=== PATIENT | male | born 1975 | race Caucasian/White ===

== ENCOUNTER 2018-12-30 10:40 | Emergency (ER) | payer MEDICAID, OTHER ==
[~2018-12-30] VITALS: Ht 167.6 cm; Wt 70.0 kg
[2018-12-30] MEDS ORDERED: ONDANSETRON HCL 4MG/2ML INJ IV STA (11:22)
[2018-12-30] MEDS ORDERED: SODIUM CHLORIDE 0.9% 1,000 ML IV ONE (11:22)
[2018-12-30] MEDS ORDERED: MORPHINE SULFATE 4 MG/ML CPJ (NOT FOR IM USE) IV STA (11:22)
[2018-12-30] MEDS ORDERED: FOLIC ACID 1 MG, THIAMINE HCL 100 MG, MVI, ADULT NO.1 10 ML in DEXTROSE 5% WATER 1,000 ML IV ONE ×4 (11:30)
[2018-12-30] MEDS ORDERED: LORAZEPAM 2MG/ML CPJ IV ONE (11:30)
[2018-12-30 12:07] LABS: BASOPHILS % 0.2 % (0.0-2.0); HEMATOCRIT. 36.2 % (42.0-52.0); HEMOGLOBIN. 12.3 g/dL (14.0-18.0); LYMPHOCYTES % 2.5 % (20.0-50.0); MEAN CORPUSCULAR HEMOGLOBIN 29.1 pg (28.0-32.0); MEAN CORPUSCULAR VOLUME 85.8 fL (80.0-94.0); MEAN PLATELET VOLUME 8.4 fl (7.4-10.4); NEUTROPHILS % 90.3 % (40.0-76.0); PLATELET 213 x1000/uL (130-400); RED BLOOD CELL COUNT 4.22 mill/uL (4.7-6.1); RED CELL DISTRIBUTION WIDTH 16.5 % (11.6-14.6)
[2018-12-30 12:12] LABS: CHLORIDE 96 mEq/L (98-107)
[2018-12-30 12:17] LABS: INR 0.9; PARTIAL THROMBOPLASTIN TIME 24.3 sec (23.4-31.0); PROTHROMBIN TIME 9.5 sec (9.6-11.0)
[2018-12-30 12:20] LABS: ETHANOL BLOOD < 10 mg/dL
[2018-12-30 13:39] LABS: CLARITY URINE CLEAR (CLEAR); COLOR URINE DARK YELLOW (YELLOW); KETONES URINE 3+ (NEGATIVE); LEUKOCYTE ESTERASE URINE NEGATIVE (NEGATIVE); NITRITE URINE NEGATIVE (NEGATIVE); OCCULT BLOOD URINE NEGATIVE (NEGATIVE); PH URINE 5.5 (4.5-8.0); PROTEIN URINE 1+ (NEGATIVE); SPECIFIC GRAVITY URINE 1.026 (1.005-1.030)
[2018-12-30 14:02] LABS: *AMPHETAMINES SCREEN URINE NEGATIVE (NEGATIVE); *BARBITURATES SCREEN URINE NEGATIVE (NEGATIVE); *BENZODIAZEPINES SCREEN URINE NEGATIVE (NEGATIVE); *COCAINE SCREEN URINE NEGATIVE (NEGATIVE)
[2018-12-30 14:03] LABS: CANNABINOID URINE SCREEN NEGATIVE (NEGATIVE); METHADONE URINE SCREEN NEGATIVE (NEGATIVE); OPIATES URINE SCREEN NEGATIVE (NEGATIVE); PHENCYCLIDINE URINE SCREEN NEGATIVE (NEGATIVE)
[2018-12-30 17:25] VITALS: BP 138/76
== END 2018-12-30 17:28 | disposition home or self-care (01) ==
LOC: ER 10:40
DX: F10.239 Alcohol dependence with withdrawal, unspecified (principal); Y90.0 Blood alcohol level of less than 20 mg/100 ml; E86.0 Dehydration; R56.9 Unspecified convulsions
CPT/HCPCS: 36415; 70450; 71045; 73562; 73630; 80053; 80305; 80320; 81003; 83690; 83880; 84484; 85025; 85610; 85730; 93005; 96361; 96365; 96375; 99284; J2060; J2405; J3411; J3490; J7030; J7070; G0480

== ENCOUNTER 2024-06-10 09:48 | Inpatient (IN) | payer MEDICAID ==
[~2024-06-10] VITALS: Ht 170.2 cm; Wt 68.0 kg
[2024-06-10 10:57] LABS: BASOPHILS % 0.4 % (0.0-2.0); HEMATOCRIT. 43.5 % (42.0-52.0); HEMOGLOBIN. 14.9 g/dL (14.0-18.0); LYMPHOCYTES % 7.3 % (20.0-50.0); MEAN CORPUSCULAR HGB CONC 34.4 g/dL (31.0-37.0); MEAN CORPUSCULAR VOLUME 93.1 fL (80.0-94.0); MEAN PLATELET VOLUME 7.6 fl (7.4-10.4); NEUTROPHILS % 86.3 % (40.0-76.0); PLATELET 446 x1000/uL (130-400); RED BLOOD CELL COUNT 4.67 mill/uL (4.7-6.1); RED CELL DISTRIBUTION WIDTH 14.9 % (11.6-14.6); WHITE BLOOD COUNT 14.9 x1000/uL (4.5-11.0)
[2024-06-10 11:05] LABS: CHLORIDE 100 mEq/L (98-107); POTASSIUM 3.3 mEq/L (3.5-5.1); SODIUM 136 mEq/L (136-145)
[2024-06-10 11:06] LABS: CALCIUM 9.6 mg/dL (8.7-10.4); CARBON DIOXIDE 20 mEq/L (21-32)
[2024-06-10 11:11] LABS: ETHANOL BLOOD 79 mg/dL (<10); GLUCOSE 127 mg/dL (70-105); UREA NITROGEN BLOOD 6 mg/dL (9-23)
[2024-06-10] MEDS: CHLORDIAZEPOXIDE 25MG CAPSULE PO ONE (11:16)
[2024-06-10] MEDS: LORAZEPAM 2MG/ML INJ IV ONE (12:08)
[2024-06-10] MEDS ORDERED: DOCUSATE SODIUM 100MG CAPSULE PO PRN (12:45)
[2024-06-10] MEDS ORDERED: IPRATROPIUM/ALBUTEROL 0.5-3(2.5)MG/3ML NEB HHN PRN (12:45)
[2024-06-10] MEDS ORDERED: ACETAMINOPHEN 325MG TABLET PO PRN (12:45)
[2024-06-10] MEDS ORDERED: GUAIFENESIN 200MG/10ML SUGAR FREE UDC PO PRN (12:45)
[2024-06-10] MEDS ORDERED: MAGNESIUM/ALUMINUM HYDROXIDE/SIMETHICONE 30ML UDC PO PRN (12:45)
[2024-06-10] MEDS ORDERED: CLONIDINE 0.1MG TABLET PO PRN (12:45)
[2024-06-10] MEDS: ONDANSETRON HCL 4MG/2ML INJ IV PRN (14:00)
[2024-06-10] MEDS: CHLORDIAZEPOXIDE 25MG CAPSULE PO SCH (14:00)
[2024-06-10] MEDS: LORAZEPAM 2MG/ML INJ IV PRN (14:12)
[2024-06-10] MEDS: KCL 20MEQ/100ML PREMIX 100 ML IV NR (15:19)
[2024-06-10] MEDS: MVI, ADULT NO.1 10 ML, FOLIC ACID 1 MG, THIAMINE HCL 100 MG in SODIUM CHLORIDE 0.9% 1,0... IV ONE (15:19)
[2024-06-10 17:33] LABS: ALANINE AMINOTRANSFERASE 31 IU/L (10-49); ALBUMIN 4.8 g/dL (3.2-4.8); ASPARTATE AMINOTRANSFERASE 26 IU/L (<34); BILIRUBIN DIRECT 0.4 mg/dL (<=3.0); BILIRUBIN TOTAL 1.1 mg/dL (0.1-1.0); PHOSPHORUS 2.2 mg/dL (2.5-4.9); PROTEIN TOTAL 7.5 g/dL (6.0-8.3)
[2024-06-10 17:34] LABS: CREATINE KINASE 164 IU/L (46-171); TROPONIN I HIGH SENSITIVITY 7 ng/L (3.0-53)
[2024-06-10 20:00] VITALS: BP 112/79; PULSE 84; RESP 16; TEMP 36.28068; O2SAT 99
[2024-06-10] MEDS: FAMOTIDINE 20MG TABLET PO SCH (21:06)
[2024-06-10 23:17] VITALS: BP 139/79; PULSE 72; RESP 17; TEMP 36.6696; O2SAT 98
[2024-06-10 23:34] VITALS: BP 118/70; PULSE 87; RESP 18; TEMP 36.696
[2024-06-11 02:02] LABS: TROPONIN I HIGH SENSITIVITY 5 ng/L (3.0-53)
[2024-06-11 02:05] LABS: CREATINE KINASE 143 IU/L (46-171)
[2024-06-11 07:50] LABS: BASOPHILS % 0.7 % (0.0-2.0); EOSINOPHILS % 0.1 % (0.0-5.0); HEMOGLOBIN. 13.7 g/dL (14.0-18.0); LYMPHOCYTES % 16.3 % (20.0-50.0); MEAN CORPUSCULAR HEMOGLOBIN 32.3 pg (28.0-32.0); MEAN CORPUSCULAR HGB CONC 34.2 g/dL (31.0-37.0); MEAN CORPUSCULAR VOLUME 94.5 fL (80.0-94.0); MEAN PLATELET VOLUME 8.5 fl (7.4-10.4); MONOCYTES % 8.6 % (2.0-8.0); NEUTROPHILS % 74.3 % (40.0-76.0); PLATELET 308 x1000/uL (130-400); RED BLOOD CELL COUNT 4.24 mill/uL (4.7-6.1); RED CELL DISTRIBUTION WIDTH 15.3 % (11.6-14.6); WHITE BLOOD COUNT 7.8 x1000/uL (4.5-11.0)
[2024-06-11 08:00] VITALS: BP 108/77; PULSE 76; RESP 18; TEMP 36.61404; O2SAT 96; O2SAT 99
[2024-06-11 08:04] LABS: CALCIUM 9.2 mg/dL (8.7-10.4); POTASSIUM 3.7 mEq/L (3.5-5.1)
[2024-06-11 08:08] LABS: THYROID STIMULATING HORMONE 0.77 uIU/mL (0.55-4.78)
[2024-06-11 08:23] LABS: CREATININE 1.4 mg/dL (0.6-1.3)
[2024-06-11] MEDS: FOLIC ACID 1MG TABLET PO SCH (08:54)
[2024-06-11] MEDS: THIAMINE HCL 100MG TABLET PO SCH (08:54)
[2024-06-11] MEDS: MULTIVITAMINS,THER W-MINERALS TABLET PO SCH (08:54)
[2024-06-11 12:00] VITALS: BP 112/72; PULSE 69; RESP 18; TEMP 36.44736; O2SAT 99
[2024-06-11] MEDS ORDERED: FOLI-43 MT (12:47)
[2024-06-11] MEDS ORDERED: THIA100T72 MT (12:47)
[2024-06-11] MEDS ORDERED: MULT-1279 MT (12:47)
[2024-06-11] MEDS: CHLORDIAZEPOXIDE 10MG CAPSULE PO SCH (13:25)
[2024-06-11] MEDS: ACETAMINOPHEN 325MG TABLET PO PRN (13:26)
[2024-06-11 14:31] VITALS: BP 103/67; PULSE 85; TEMP 98.7; O2SAT 99
[2024-06-11 16:04] VITALS: BP 103/67; PULSE 85; RESP 18; TEMP 37.05852; O2SAT 99
== END 2024-06-11 16:50 | disposition home or self-care (01) | DRG 52 ==
LOC: ER 09:48 → 5WST 11:12 → EDBEDREQ 11:14 → 7EST 23:13
PROVIDERS: ADMIT Hospitalist; ATTEND Hospitalist
DX: G92.8 Other toxic encephalopathy (principal); D72.829 Elevated white blood cell count, unspecified; E87.6 Hypokalemia; G40.909 Epilepsy, unspecified, not intractable, without status epilepticus; F10.239 Alcohol dependence with withdrawal, unspecified; F10.229 Alcohol dependence with intoxication, unspecified; R73.9 Hyperglycemia, unspecified; Y90.9 Presence of alcohol in blood, level not specified
CPT/HCPCS: 36415; 71045; 80048; 80076; 80320; 82550; 83036; 83735; 84100; 84145; 84443; 84484; 85025; 93005; 99285; J2060; J2405; J3411; J3480; J3490; J7030; G0480